=== PATIENT | female | born 1945 | race Caucasian/White ===

== ENCOUNTER 2021-06-10 14:53 | Outpatient (CLI) | payer MEDICARE, SELFPAY ==
[2021-06-10 19:40] LABS: Hemoglobin 13.5 g/dL (12.0-15.0); Mean Corpuscular HGB Conc 32.1 g/dl (32-36); Mean Corpuscular Hemoglobin 31.1 pg (26-34); Mean Corpuscular Volume 96.8 fl (80-100); Mean Platelet Volume 9.9 fl (7.4-10.4); Platelet Count Result 285 k/mm3 (150-375); Red Blood Count 4.34 M/mm3 (4.2-5.4); Red Cell Distribution Width 12.1 % (11.5-14.5); White Blood Count 8.2 K/mm3 (4.5-10.0)
[2021-06-10 19:48] LABS: Alanine Aminotransferase 19 U/L (4-35); Albumin Level 4.7 g/dL (3.5-5.1); Alkaline Phosphatase 185 U/L (38-126); Anion Gap 8 mmol/L (8-16); Aspartate Amino Transferase 30 U/L (14-36); Bilirubin,Total 0.7 mg/dL (0.2-1.3); Blood Urea Nitrogen 21 mg/dL (7-17); Calcium 10.3 mg/dL (8.4-10.2); Carbon Dioxide 29 mmol/L (22-30); Chloride 103 mmol/L (98-107); Cholesterol 225 mg/dL (0-200); Estimated Glomerular Filt Rate > 60; Glucose 110 mg/dL (65-110); HDL Direct 65 mg/dL; Potassium 4.1 mmol/L (3.4-5.0); Sodium 140 mmol/L (137-145); Triglycerides 139 mg/dL (<150)
[2021-06-10 19:58] LABS: LDL Cholesterol Direct 126 mg/dL
[2021-06-10 20:18] LABS: Thyroid Stimulating Hormone Reflex 0.931 uIU/mL (0.465-4.68)
== END 2021-06-10 14:54 | disposition home or self-care (01) ==
PROVIDERS: PCP Family Medicine; Visit Provider Family Medicine
DX: E78.5 Hyperlipidemia, unspecified (principal); J44.9 Chronic obstructive pulmonary disease, unspecified; G47.00 Insomnia, unspecified; G43.909 Migraine, unspecified, not intractable, without status migrainosus
CPT/HCPCS: 36415; 80053; 80061; 84443; 85027

== ENCOUNTER 2021-09-09 14:57 | Outpatient (CLI) | payer MEDICARE, SELFPAY ==
[2021-09-09 19:23] LABS: Alanine Aminotransferase 23 U/L (4-35); Albumin Level 4.6 g/dL (3.5-5.1); Alkaline Phosphatase 179 U/L (38-126); Aspartate Amino Transferase 34 U/L (14-36); Bilirubin,Total 0.7 mg/dL (0.2-1.3)
[2021-09-12 03:25] LABS: Ionized Calcium 5.2 mg/dL (4.8-5.6)
== END 2021-09-09 14:58 | disposition home or self-care (01) ==
PROVIDERS: PCP Family Medicine; Visit Provider Family Medicine
DX: R74.8 Abnormal levels of other serum enzymes (principal); E83.52 Hypercalcemia
CPT/HCPCS: 36415; 80076; 82330

== ENCOUNTER 2021-10-15 11:55 | Outpatient (CLI) | payer MEDICARE, SELFPAY ==
[2021-10-15 20:12] LABS: Alkaline Phosphatase 174 U/L (38-126)
[2021-10-20 20:12] LABS: Parathyroid Hormone Related Pr 10 pg/mL (11-20)
[2021-10-21 05:37] LABS: Alkaline Phosphatase 163 U/L (37-153); Macrohepatic Isoenzymes 0 % (<=0)
== END 2021-10-15 11:56 | disposition home or self-care (01) ==
PROVIDERS: PCP Family Medicine; Visit Provider Family Medicine
DX: R74.8 Abnormal levels of other serum enzymes (principal); E83.52 Hypercalcemia
CPT/HCPCS: 36415; 83519; 84075; 84080

== ENCOUNTER 2021-11-10 11:28 | Emergency (ER) | payer MEDICARE, SELFPAY ==
[2021-11-10 11:35] VITALS: BP 127/61; PULSE 98; RESP 20; TEMP 36.1; O2SAT 100
--- NOTE | 2021-11-10 11:40 | ED.FEMALEGU ---
HPI - Female Genitourinary General Chief complaint: Urogenital-Female Stated complaint: Urinary Problem/Abdominal Pain Time Seen by Provider: 11/10/21 11:40 Source: patient Mode of arrival: ambulatory Limitations: no limitations History of Present Illness HPI Narrative: Ms. Estevez is a 76-year-old female patient presenting to the clinic today with complaints of possible urinary tract infection. She reports she is having urinary frequency, urgency and blood in her urine that began yesterday. She reports that she was having some right lower quadrant/pelvic pain this morning however that has resolved. History of a full hysterectomy. Related Data Home Medications Medication Instructions Recorded Confirmed fluoxetine 40 mg capsule 40 mg PO DAILY 06/10/21 11/10/21 Allergies Allergy/AdvReac Type Severity Reaction Status Date / Time tetracycline Allergy bright red Verified 11/10/21 11:43 and she gets really warm Review of Systems Review of Systems: Pertinent positives per HPI. Patient denies any fever, chills, rash, headache, visual changes, dizziness, cough, runny nose, sore throat, shortness of breath, chest pain, palpitations, nausea, vomiting, diarrhea, constipation. PMFSH Social History Social History Smoking status: Former smoker Comments At the time of my signature, I reviewed and agree with the nursing past medical, surgical, social, and family history. There is no relevant family history pertinent to the patient complaint. Exam Narrative: General: Well-developed, well nourished, in no apparent distress. Head: Normocephalic, atraumatic. Cardio: Regular rate and rhythm, s1 and s2 normal, no murmur appreciated. Resp: Clear to auscultation bilaterally, no rhonchi, rales, wheezing or rubs. Abdomen: Soft, pliable, bowel sounds present in all quadrants, non-tender to palpation, no organomegly, + CVAT tenderness bilaterally. Course Course Emergency Course: Portions of this record may have been created with voice recognition software. Level of Care: Express Care Visit Vital Signs Vital signs: Vital signs reviewed MDM - Female Genitourinary MDM Narrative Medical decision making narrative: At the time of visit patient is resting comfortably on the exam table. UA shows positive for blood, protein, ketone, and leukocyte. I suspect the patient has acute cystitis possibly early pyelonephritis. I will treat with a course of Bactrim. Supportive measures were discussed with the patient she voiced understanding of discharge instructions and agrees with treatment plan Differential Diagnosis Differential diagnosis: Likely urinary tract infection and cystitis Discharge Plan Discharge Clinical Impression: Urinary tract infection Qualifiers: Urinary tract infection type: acute cystitis Hematuria presence: with hematuria Qualified Code(s): N30.01 - Acute cystitis with hematuria Patient Disposition: Home, Self-Care Condition: Stable Instructions: Antibiotic Form, Urinary Tract Infection in Older Adults (ED) Additional Instructions: Take Bactrim as prescribed Increase fluids and stay well hydrated Wipe front to back. May use wet wipes. Avoid tub baths If sexually active- pee before and after intercourse. Wear cotton panties Avoid tight clothing up against the genitals Follow up with your PCP in 1 week if symptoms persist. Prescriptions: New sulfamethoxazole-trimethoprim [Bactrim DS] 800-160 mg tablet 1 tablet PO Q12H 7 Days Qty: 14 0RF No Action fluoxetine 40 mg capsule 40 mg PO DAILY tiotropium-olodaterol 2.5-2.5 mcg/actuation mist 2 puff inhalation DAILY Qty: 4 6RF rosuvastatin 20 mg tablet 20 mg PO DAILY Qty: 90 1RF sumatriptan succinate 50 mg tablet See Rx Instructions PO .COMPLEX Qty: 14 0RF Rx Instructions: take 1 tab at onset of headache; if no relief may repe
--- NOTE | 2021-11-10 13:03 | PC.NURSE ---
1303-- PT HAS NOT BEEN ABLE TO SUBMIT URINE SPECIMEN OF YET. SHE IS DRINKING HER 2ND BOTTLE OF WATER AND WILL ATTEMPT TO SUBMIT URINE FOR TESTING.
== END 2021-11-10 13:29 | disposition home or self-care (01) ==
PROVIDERS: Emergency Provider Nurse Practitioner Family; PCP Family Medicine
DX: N30.01 Acute cystitis with hematuria (principal); Z87.891 Personal history of nicotine dependence; E78.00 Pure hypercholesterolemia, unspecified; J44.9 Chronic obstructive pulmonary disease, unspecified; F32.A Depression, unspecified
CPT/HCPCS: 81003; 87077; 87086; 87088; 87186; 99213; G0463

== ENCOUNTER 2022-01-07 08:09 | Outpatient (CLI) | payer MEDICARE, SELFPAY ==
--- NOTE | ~2022-01-07 | XR_ITS ---
EXAMINATION: XR chest 2V DATE: 01/07/2022 13:08 INDICATION: Shortness of breath and cough TECHNIQUE: Frontal and lateral views of the chest are obtained COMPARISON: None available FINDINGS: There appears to be a nodule of the left lung base. No pleural effusion or pneumothorax. Th e cardiomediastinal silhouette is normal. There is moderate thoracic spondylosis. IMPRESSION: 1. Possible nodule of the left lung base. Further evaluation with CT of the chest is recommended. Reviewed, dictated and finalized at location B. IMPRESSION: 1. Possible nodule of the left lung base. Further evaluation with CT of the [address] st is recommended.
[2022-01-07 18:52] LABS: Hematocrit 40.9 % (37.0-47.0); Hemoglobin 12.6 g/dL (12.0-15.0); Mean Corpuscular HGB Conc 30.8 g/dl (32-36); Mean Corpuscular Hemoglobin 30.6 pg (26-34); Mean Corpuscular Volume 99.3 fl (80-100); Mean Platelet Volume 9.6 fl (7.4-10.4); Platelet Count Result 266 k/mm3 (150-375); Red Blood Count 4.12 M/mm3 (4.2-5.4); Red Cell Distribution Width 12.8 % (11.5-14.5); White Blood Count 8.4 K/mm3 (4.5-10.0)
[2022-01-07 19:11] LABS: Alanine Aminotransferase 25 U/L (6-35); Albumin Level 4.6 g/dL (3.5-5.1); Alkaline Phosphatase 130 U/L (38-126); Anion Gap 9 mmol/L (8-16); Aspartate Amino Transferase 69 U/L (14-36); Bilirubin,Total 0.8 mg/dL (0.2-1.3); Blood Urea Nitrogen 22 mg/dL (7-17); Calcium 9.9 mg/dL (8.4-10.2); Carbon Dioxide 29 mmol/L (22-30); Chloride 103 mmol/L (98-107); Estimated Glomerular Filt Rate 54; Glucose 86 mg/dL (65-110); Potassium 4.3 mmol/L (3.4-5.0); Sodium 141 mmol/L (137-145)
== END 2022-01-07 08:10 | disposition home or self-care (01) ==
PROVIDERS: PCP Family Medicine; Visit Provider Family Medicine
DX: E78.5 Hyperlipidemia, unspecified (principal); J44.9 Chronic obstructive pulmonary disease, unspecified; R74.8 Abnormal levels of other serum enzymes; R91.8 Other nonspecific abnormal finding of lung field
CPT/HCPCS: 36415; 71046; 80053; 85027

== ENCOUNTER 2022-01-15 12:37 | Outpatient (CLI) | payer MEDICARE, SELFPAY ==
[2022-01-15 13:00] VITALS: PULSE 78; O2SAT 100
[2022-01-15 13:05] VITALS: PULSE 96; O2SAT 95
[2022-01-15 13:15] VITALS: PULSE 82; O2SAT 98
--- NOTE | 2022-01-15 14:23 | HOMEO2EVAL ---
Evaluation was performed at [facility] Home Oxygen Evaluation RC: Home Oxygen (O2) Evaluation Start: 01/15/22 14:21 Freq: Status: Active Protocol: RPE Activity Type Activity Date Activity User E-sign Co-sign Detail Recorded Client Recorded Date Recorded By Document 01/15/22 13:00 [email or web address] [id number] 01/15/22 14:23 SOHA Document 01/15/22 13:05 SOHA [id number] 01/15/22 14:23 SOHA Document 01/15/22 13:15 SOHA [id number] 01/15/22 14:23 SOHA 01/15/22 01/15/22 01/15/22 13:00 13:05 13:15 Home O2 Evaluation Test Phase Resting Exercise Resting Oxygen Delivery Room Air Room Air Room Air Pulse Oximetry (90-100 %) 100 95 98 Pulse Rate (60-100 beats/min) 78 96 82 Ambulation Distance (feet) 350 Ambulation Distance (meters) 106.67 Treatment Charges O2 Evaluation - O2 Evaluation - Outpatient Outpatient
--- NOTE | 2022-01-15 14:25 | PCRCNOTE ---
FAXED EVAL TO OFFICE STAFF
--- NOTE | 2022-01-19 13:08 | WPDPFTINT ---
PFT Procedure Performed PFT Procedure Performed Spirometry with Pre/Post Bronchodilator Plethysmography (Lung Vol) Diffusing Cap (DLCO) Flow Vol Loop PFT Interpretation Lung volumes were measured with the body plethysmography method. The elevated FRC and RV are indicative of air trapping. The elevated TLC could represent lung hyperinflation. Spirometry showed diminished expiratory flow rates and a diminished FEV1 to FVC ratio 48%, indicative of obstructive airway disease. Following administration of a bronchodilator, there was no significant increase in expiratory flow rates. Lung diffusing capacity is severely reduced at 36% predicted. The flow volume loop is consistent with obstructive airway disease. Impression: Severe obstructive airway disease with evidence of air trapping and lung hyperinflation with no response to bronchodilators on this testing. Severely reduced lung diffusion capacity.
== END 2022-01-15 12:38 | disposition home or self-care (01) ==
PROVIDERS: PCP Family Medicine; Visit Provider Internal Medicine Pulmonary Disease
DX: R06.00 Dyspnea, unspecified (principal); J44.9 Chronic obstructive pulmonary disease, unspecified; R94.2 Abnormal results of pulmonary function studies
CPT/HCPCS: 94060; 94618; 94726; 94729

== ENCOUNTER 2022-02-16 11:39 | Outpatient (CLI) | payer MEDICARE, SELFPAY ==
[2022-02-16 18:50] LABS: Alanine Aminotransferase 24 U/L (6-35); Albumin Level 4.5 g/dL (3.5-5.1); Alkaline Phosphatase 136 U/L (38-126); Aspartate Amino Transferase 72 U/L (14-36)
[2022-02-16 19:31] LABS: Hepatitis B Surface Antigen Negative (Negative)
[2022-02-16 19:33] LABS: HAV RESULT Negative (Negative); Hepatitis B Core IgM Result Negative (Negative)
[2022-02-16 19:43] LABS: Hepatitis C Virus Antibody Negative (Negative)
== END 2022-02-16 11:40 | disposition home or self-care (01) ==
PROVIDERS: PCP Family Medicine; Visit Provider Family Medicine
DX: R74.8 Abnormal levels of other serum enzymes (principal); R91.1 Solitary pulmonary nodule; E83.52 Hypercalcemia; G47.30 Sleep apnea, unspecified; J44.9 Chronic obstructive pulmonary disease, unspecified; R74.01 Elevation of levels of liver transaminase levels
CPT/HCPCS: 36415; 80074; 80076

== ENCOUNTER 2022-06-24 11:57 | Outpatient (CLI) | payer MEDICARE, SELFPAY ==
--- NOTE | ~2022-06-24 | XR_ITS ---
Clinical Indication: COPD, shortness of breath PA and lateral views of the chest: Comparison: 01/07/2022 Findings: The lungs are clear, without evidence of focal consolidation or pleural effusion. Cardiome diastinal silhouette is within normal limits. Bones and soft tissues are unremarkable. Impression: Normal chest. Reviewed, dictated and finalized at location . R TECHNICIAN Impression: Normal chest.
[2022-06-24 19:03] LABS: Alanine Aminotransferase 19 U/L (6-35); Albumin Level 4.5 g/dL (3.5-5.1); Alkaline Phosphatase 117 U/L (38-126); Anion Gap 6 mmol/L (8-16); Aspartate Amino Transferase 45 U/L (14-36); Bilirubin,Total 0.9 mg/dL (0.2-1.3); Blood Urea Nitrogen 25 mg/dL (7-17); Calcium 9.5 mg/dL (8.4-10.2); Carbon Dioxide 28 mmol/L (22-30); Chloride 103 mmol/L (98-107); Cholesterol 236 mg/dL (0-200); Estimated Glomerular Filt Rate > 60; Glucose 102 mg/dL (65-110); HDL Direct 45 mg/dL; Potassium 3.8 mmol/L (3.4-5.0); Sodium 137 mmol/L (137-145); Triglycerides 133 mg/dL (<150)
[2022-06-24 19:14] LABS: LDL Cholesterol Direct 130 mg/dL
[2022-06-24 20:07] LABS: Basophils Absolute Auto 0.1 K/mm3 (0.0-0.1); Basophils Percent Auto 0.5 % (0.2-1.2); Eosinophils Absolute Auto 0.2 K/mm3 (0-0.3); Eosinophils Percent Auto 2.2 % (0-4.4); Hematocrit 37.9 % (37.0-47.0); Hemoglobin 12.1 g/dL (12.0-15.0); Immature Granulocyte Absolute 0.03 K/mm3 (0.00-0.031); Immature Granulocyte Percent A 0.3 % (0-0.5); Lymphocytes Absolute Auto 2.19 K/mm3 (0.9-3.2); Lymphocytes Percent Auto 22.6 % (18.3-44.2); Mean Corpuscular HGB Conc 31.9 g/dl (32-36); Mean Corpuscular Hemoglobin 30.4 pg (26-34); Mean Corpuscular Volume 95.2 fl (80-100); Mean Platelet Volume 10.1 fl (7.4-10.4); Monocytes Absolute Auto 0.6 K/mm3 (0.1-0.6); Monocytes Percent Auto 6.5 % (2.6-8.5); Neutrophils Absolute Auto 6.6 K/mm3 (1.3-6.7); Neutrophils Percent Auto 67.9 % (45.5-73.1); Platelet Count Result 296 k/mm3 (150-375); Red Blood Count 3.98 M/mm3 (4.2-5.4); Red Cell Distribution Width 12.6 % (11.5-14.5); White Blood Count 9.7 K/mm3 (4.5-10.0)
== END 2022-06-24 11:58 | disposition home or self-care (01) ==
PROVIDERS: PCP Family Medicine; Visit Provider Family Medicine
DX: J44.9 Chronic obstructive pulmonary disease, unspecified (principal); E78.5 Hyperlipidemia, unspecified; G43.909 Migraine, unspecified, not intractable, without status migrainosus; G47.00 Insomnia, unspecified; E83.52 Hypercalcemia; R74.8 Abnormal levels of other serum enzymes; R91.1 Solitary pulmonary nodule
CPT/HCPCS: 36415; 71046; 80053; 80061; 85025

== ENCOUNTER 2022-07-01 11:02 | Outpatient (CLI) | payer MEDICARE, SELFPAY ==
--- NOTE | ~2022-07-01 | XR_ITS ---
EXAMINATION: XR sacrum coccyx min 2V INDICATION: Pain after fall, initial encounter TECHNIQUE: Three views of the sacrum and coccyx are obtained. COMPARISON: None available FINDINGS: There appears to be subtle irregularity of the lower sacrum/coccyx, consistent with fractur e. There is moderate lumbar spondylosis. Calcified atherosclerosis is noted. IMPRESSION: 1. Findings suggestive of nondisplaced sacral/coccyx fracture. Consider CT for further evaluation. Reviewed, dictated and finalized at location A. [employer]
== END 2022-07-01 11:03 | disposition home or self-care (01) ==
LOC: ANHBWCIMG 11:03
PROVIDERS: PCP Family Medicine; Visit Provider Family Medicine
DX: J44.9 Chronic obstructive pulmonary disease, unspecified (principal); M53.3 Sacrococcygeal disorders, not elsewhere classified
CPT/HCPCS: 72220

== ENCOUNTER 2022-07-26 11:02 | Outpatient (CLI) | payer MEDICARE, SELFPAY ==
[2022-07-26 11:00] VITALS: PULSE 78; O2SAT 98
[2022-07-26 11:05] VITALS: PULSE 75; O2SAT 85
[2022-07-26 11:10] VITALS: PULSE 73; O2SAT 87
[2022-07-26 11:15] VITALS: PULSE 85; O2SAT 87
[2022-07-26 11:20] VITALS: PULSE 85; O2SAT 92
[2022-07-26 11:45] VITALS: PULSE 80; O2SAT 97
--- NOTE | 2022-07-26 11:50 | HOMEO2EVAL ---
Evaluation was performed at [facility] Home Oxygen Evaluation RC: Home Oxygen (O2) Evaluation Start: 07/26/22 11:46 Freq: Status: Active Protocol: RPE Activity Type Activity Date Activity User E-sign Co-sign Detail Recorded Client Recorded Date Recorded By Document 07/26/22 11:00 [email or web address] [email or web address] 07/26/22 11:50 PKH Document 07/26/22 11:05 [email or web address] [email or web address] 07/26/22 11:50 PKH Document 07/26/22 11:10 [email or web address] [email or web address] 07/26/22 11:50 PKH Document 07/26/22 11:15 [email or web address] [email or web address] 07/26/22 11:50 PKH Document 07/26/22 11:20 [email or web address] [email or web address] 07/26/22 11:50 PKH Document 07/26/22 11:45 [email or web address] [email or web address] 07/26/22 11:50 PKH 07/26/22 07/26/22 07/26/22 11:00 11:05 11:10 Home O2 Evaluation [Oxygen] -Test Phase Resting Exercise Exercise -Oxygen Delivery Room Air Room Air Nasal Cannula -Oxygen Flow Rate (L/min) 1 [Pulse Oximetry] -Pulse Oximetry (90-100 %) 98 85 L 87 L [Pulse Rate] -Pulse Rate (60-100 beats/min) 78 75 73 [Exercise] -Ambulation Distance (feet) -Ambulation Distance (meters) [Comments] -Home Oxygen Evaluation Comments [Charges] -Treatment Charges O2 Evaluation - Outpatient 07/26/22 07/26/22 07/26/22 11:15 11:20 11:45 Home O2 Evaluation [Oxygen] -Test Phase Exercise Resting Resting -Oxygen Delivery Nasal Cannula Nasal Cannula Room Air -Oxygen Flow Rate (L/min) 2 3 [Pulse Oximetry] -Pulse Oximetry (90-100 %) 87 L 92 97 [Pulse Rate] -Pulse Rate (60-100 beats/min) 85 85 80 [Exercise] -Ambulation Distance (feet) 300 -Ambulation Distance (meters) 91.43 [Comments] -Home Oxygen Evaluation Comments Patient requires 3lpm with activity [Charges] -Treatment Charges
--- NOTE | 2022-07-26 11:53 | PCRCNOTE ---
Home O2 eval complete.Patient requires Room Air with rest and 3lpm with activity.doctor notified.
== END 2022-07-26 11:03 | disposition home or self-care (01) ==
LOC: ANHPFT 11:03
PROVIDERS: PCP Family Medicine; Visit Provider Physician Assistant
DX: J44.9 Chronic obstructive pulmonary disease, unspecified (principal); R06.09 Other forms of dyspnea
CPT/HCPCS: 94618

== ENCOUNTER 2022-09-09 17:32 | Emergency (ER) | payer MEDICARE, SELFPAY ==
--- NOTE | ~2022-09-09 | XR_ITS ---
EXAMINATION: [id number] DATE: 09/09/2022 18:18 INDICATION: Left chest injury. TECHNIQUE: A frontal view of the chest and 2 views on 3 views of the left ribs were obtained. COMPARISON: Chest 2 views 06/24/2022 FINDINGS: The chest demonstrates clear lungs without pneumonia, pleural effusion, or pneumothorax. Th e heart size is normal. There are old healed fractures of left fourth, fifth, and seventh ribs. IMPRESSION: 1. No acute rib fracture. Reviewed, dictated and finalized at location E. IMPRESSION: 1. No acute rib fracture.
[2022-09-09 17:42] VITALS: BP 96/44; PULSE 90; RESP 20; TEMP 36.8; O2SAT 99
--- NOTE | 2022-09-09 18:09 | ED.FALL ---
HPI - Fall General Chief Complaint: Fall Stated Complaint: Lower back pain from fall Time Seen by Provider: 09/09/22 18:10 Source: patient, family, RN notes reviewed and old records reviewed Mode of arrival: ambulatory Limitations: no limitations History of Present Illness HPI Narrative: 77-year-old female who presents to [facility] with complaints left-sided rib pain posteriorly since experiencing fall on Tuesday at her home. Patient recently started on O2 at 3 L per nasal cannula has a history of COPD. She reports that she was standing up tying to move TV tray and she lost her balance and fell hitting her left posterior lateral chest on the coffee table. Patient denies hitting her head or any LOC.Patient has ecchymotic area to left posterior lateral chest below bra line, denies any changes in her breathing. MD complaint: fall Onset (ago): day(s) (2) Fall from: standing Related Data Allergies Allergy/AdvReac Type Severity Reaction Status Date / Time tetracycline Allergy bright red Verified 09/09/22 17:57 and she gets really warm Review of Systems Review of Systems: CONSTITUTIONAL: Denies fever, chills, or sweats. EYES: Denies visual changes, redness, or discharge. ENT: Denies rhinorrhea, congestion, sore throat, or otalgia. CARDIOVASCULAR: Denies chest pain, palpitations, or edema. RESPIRATORY: Denies cough or acute dyspnea patient is on home oxygen per nasal cannula at 3 liters GASTROINTESTINAL: Denies abdominal pain, nausea, vomiting, or diarrhea. GENITOURINARY: Denies dysuria or hematuria. SKIN: Denies rash or itching. MUSCULOSKELETAL: Denies back pain, joint pain, or myalgia.Positive for left posterior lateral chest soreness NEUROLOGIC: Denies headache, numbness, or weakness. PSYCHIATRIC: Positive for history of anxiety or depression. All systems reviewed & are unremarkable except as noted in HPI and below PMFSH Past Medical History Medical History COPD (chronic obstructive pulmonary disease) Elevated cholesterol Migraine Social History Social History Smoking status: Former smoker Comments At time of signature, agree with nursing past medical, surgical, social and family history. There is no relevant family history pertinent to the presenting complaint Exam Narrative: GENERAL: Chronic ill-appearing, well-nourished, and in no acute distress. HEAD: Normocephalic, atraumatic. EYES: PERRLA and EOMI. ENT: Nares clear, no rhinorrhea or epistaxis. Mucous membranes moist.TM's normal is [place], throat pink with no swelling NECK: Supple. no lymphadenopathy CHEST: Decreased to auscultation. No respiratory distress. on home oxygen at 3L per nasal cannula SAO2 99% HEART: Regular rate and rhythm. No murmur heard. Normal peripheral pulses. ABDOMEN: Soft, nontender, nondistended, normal active bowel sounds. EXTREMITIES: Normal range of motion. No edema. SKIN: Warm, dry, no rash.ecchymotic area left posterior lateral chest from fall NEURO: No focal deficits. Alert and oriented x3. Course Course Emergency Course: Patient is aware of diagnosis, understands and agrees to treatment plan.? Anticipatory guidance given.? Patient agrees to follow-up as directed and is aware of reasons to seek care at the emergency department. Portions of this record may have been created with voice recognition software Level of Care: Express Care Visit Vital Signs Vital signs: Vital Signs Temperature 36.8 C 09/09/22 17:42 Pulse Rate 90 09/09/22 17:42 Respiratory Rate 20 09/09/22 17:42 Blood Pressure 96/44 L 09/09/22 17:42 Pulse Oximetry 99 09/09/22 17:42 Oxygen Delivery Room Air 09/09/22 17:42 Temperature 36.8 C 09/09/22 17:42 Pulse Rate 90 09/09/22 17:42 Respiratory Rate 20 09/09/22 17:42 Blood Pressure 96/44 L 09/09/22 17:42 Pulse Oximetry 99 09/09/22 17:42 Oxygen Del[employer]
== END 2022-09-09 18:36 | disposition home or self-care (01) ==
PROVIDERS: Emergency Provider Registered Nurse; PCP Family Medicine
DX: S20.222A Contusion of left back wall of thorax, initial encounter (principal); W19.XXXA Unspecified fall, initial encounter; J44.9 Chronic obstructive pulmonary disease, unspecified; E78.00 Pure hypercholesterolemia, unspecified; Z87.891 Personal history of nicotine dependence
CPT/HCPCS: 71101; 99213; G0463

== ENCOUNTER 2023-04-13 16:14 | Emergency (ER) | payer MEDICARE, SELFPAY ==
[2023-04-13 16:21] VITALS: BP 124/67; PULSE 93; RESP 16; TEMP 36.3; O2SAT 97
--- NOTE | 2023-04-13 16:26 | ED.FEMALEGU ---
HPI - Female Genitourinary General Chief complaint: Urogenital-Female Stated complaint: Urinary Problem Time Seen by Provider: 04/13/23 16:27 Source: patient Mode of arrival: ambulatory Limitations: no limitations History of Present Illness HPI Narrative: Chelsea is a 77-year-old female patient presenting to clinic today with complaints of possible UTI. She reports she is having foul odor with urination and itching. Denies any vaginal discharge or irritation. Related Data Home Medications Medication Instructions Recorded Confirmed budesonide 160 mcg-glycopyr 9 2 inh inhalation DAILY 04/13/23 04/13/23 mcg-formot 4.8 mcg/actuation HFA inhaler (Breztri Aerosphere) rosuvastatin 20 mg tablet 20 mg PO DAILY 04/13/23 04/13/23 sumatriptan succinate 50 mg tablet 50 mg PO DAILY PRN Migraine 04/13/23 04/13/23 Headache Allergies Allergy/AdvReac Type Severity Reaction Status Date / Time tetracycline Allergy Unknown Unknown Verified 04/13/23 16:37 Review of Systems Review of Systems: Pertinent positives per HPI. Patient denies any fever, chills, rash, headache, visual changes, dizziness, cough, runny nose, sore throat, shortness of breath, chest pain, palpitations, nausea, vomiting, diarrhea, constipation, abdominal pain, or any urinary issues. PMFSH Comments At the time of my signature, I reviewed and agree with the nursing past medical, surgical, social, and family history. There is no relevant family history pertinent to the patient complaint. Exam Narrative: General: Well-developed, well nourished, in no apparent distress. Head: Normocephalic, atraumatic. Cardio: Regular rate and rhythm, s1 and s2 normal, no murmur appreciated. Resp: Clear to auscultation bilaterally, no rhonchi, rales, wheezing or rubs. Abdomen: Soft, pliable, bowel sounds present in all quadrants, non-tender to palpation, no organomegly, no CVAT tenderness. : Deferred Course Course Emergency Course: Portions of this record may have been created with voice recognition software. Level of Care: Express Care Visit Vital Signs Vital signs: Vital Signs Temperature 36.3 C L 04/13/23 16:21 Pulse Rate 93 04/13/23 16:21 Respiratory Rate 16 04/13/23 16:21 Blood Pressure 124/67 04/13/23 16:21 Pulse Oximetry 97 04/13/23 16:21 Oxygen Delivery Room Air 04/13/23 16:21 Temperature 36.3 C L 04/13/23 16:21 Pulse Rate 93 04/13/23 16:21 Respiratory Rate 16 04/13/23 16:21 Blood Pressure 124/67 04/13/23 16:21 Pulse Oximetry 97 04/13/23 16:21 Oxygen Delivery Room Air 04/13/23 16:21 Vital signs reviewed MDM - Female Genitourinary MDM Narrative Medical decision making narrative: At the time of visit patient is resting comfortably on the exam table. Urinalysis was performed and shows 2+ protein, trace of blood, bili, and trace ketones. Will send the urine for culture. Recommend patient follow-up with her PCP for kidney function tests. Supportive measures were discussed with the patient she voiced understanding the discharge instructions and agrees to treatment plan. Differential Diagnosis Differential diagnosis: Likely urinary tract infection, cystitis and other (Fungal infection) Discharge Plan Discharge Clinical Impression: Malodorous urine, Perineal itching, female Patient Disposition: Home, Self-Care Condition: Stable Instructions: Antibiotic Form Additional Instructions: UA is positive for 2+ protein, trace of blood, bilirubin, and ketones. We will send urine for culture Increase fluids and stay well hydrated Wipe front to back. May use wet wipes. Avoid tub baths If sexually active- pee before and after intercourse. Wear cotton panties Avoid tight clothing up against the genitals Follow up with your PCP next week-may need blood work -kidney function test Prescriptions: No Action rosuvastatin 20 mg tablet 20 mg PO DAILY sumatriptan succinate 50 mg t
== END 2023-04-13 16:40 | disposition home or self-care (01) ==
PROVIDERS: Emergency Provider Nurse Practitioner Family; PCP Family Medicine
DX: R82.998 Other abnormal findings in urine (principal); L29.3 Anogenital pruritus, unspecified; J44.9 Chronic obstructive pulmonary disease, unspecified
CPT/HCPCS: 81003; 87086; 87088; 99213; G0463

== ENCOUNTER 2023-06-22 12:37 | Outpatient (CLI) | payer MEDICARE, SELFPAY ==
--- NOTE | ~2023-06-22 | CT_ITS ---
EXAMINATION:CT diagnostic chest wo con DATE: 06/22/2023 12:51 INDICATION: Solitary pulmonary nodule. TECHNIQUE: Computed tomography (CT) of the chest was performed without intravenous contrast. Automate d exposure control and iterative reconstruction technique were employed. The dose-length product (DLP ) was 73.72 mGy-cm. COMPARISON: None. FINDINGS: There is mild emphysema. There is mild scarring at the lung apices. There is mild atelectas is bilaterally. There is a 3 mm nodule in left upper lobe, likely benign. No pleural effusion. There is calcified atherosclerosis of the aorta and many of the other arteries. The heart size is normal. T here are coronary artery calcifications. No pericardial effusion. There is moderate cervical spondylo sis. IMPRESSION: 1. Mild emphysema. Reviewed, dictated and finalized at location E. [employer]SILE CREWMAN IMPRESSION: 1. Mild emphysema.
== END 2023-06-22 12:38 | disposition home or self-care (01) ==
LOC: ANHIMG 12:41
PROVIDERS: PCP Nurse Practitioner Adult Health; Visit Provider Physician Assistant
DX: R91.1 Solitary pulmonary nodule (principal)
CPT/HCPCS: 71250

== ENCOUNTER 2023-06-25 02:37 | Emergency (ER) | payer MEDICARE, SELFPAY ==
[2023-06-25] VITALS (16 sets, daily range): BP systolic 139–192; BP diastolic 77–156; PULSE 54–77; RESP 18–20; TEMP 36.2; O2SAT 91–100
--- NOTE | 2023-06-25 02:56 | ECG_ITS ---
Measurements Intervals [place] Rate: 71 P: 84 FL: 178 QRS: 26 QRSD: 92 T: 81 QT: 376 QTc: 410 Interpretive Statements SINUS RHYTHM SEPTAL MYOCARDIAL INFARCTION , OF INDETERMINATE AGE [40+ ms Q WAVE IN V1/V2] NONSPECIFIC ST AND T-WAVE ABNORMALITY ABNORMAL ECG NO PREVIOUS ECG AVAILABLE FOR COMPARISON Electronically Signed On 06-25-2023 8:05:08 FACILITY ENGINEER by Clayton Stover M.D.
[2023-06-25 03:08] LABS: Basophils Absolute Auto 0.1 K/mm3 (0.0-0.1); Basophils Percent Auto 0.7 % (0.2-1.2); Eosinophils Absolute Auto 0.1 K/mm3 (0-0.3); Eosinophils Percent Auto 1.6 % (0-4.4); Hematocrit 41.2 % (37.0-47.0); Hemoglobin 13.4 g/dL (12.0-15.0); Immature Granulocyte Absolute 0.02 K/mm3 (0.00-0.031); Immature Granulocyte Percent A 0.2 % (0-0.5); Lymphocytes Absolute Auto 2.49 K/mm3 (0.9-3.2); Lymphocytes Percent Auto 31.1 % (18.3-44.2); Mean Corpuscular HGB Conc 32.5 g/dl (32-36); Mean Corpuscular Hemoglobin 31.1 pg (26-34); Mean Corpuscular Volume 95.6 fl (80-100); Mean Platelet Volume 9.4 fl (7.4-10.4); Monocytes Absolute Auto 0.5 K/mm3 (0.1-0.6); Monocytes Percent Auto 6.6 % (2.6-8.5); Neutrophils Absolute Auto 4.8 K/mm3 (1.3-6.7); Neutrophils Percent Auto 59.8 % (45.5-73.1); Platelet Count Result 253 k/mm3 (150-375); Red Blood Count 4.31 M/mm3 (4.2-5.4); Red Cell Distribution Width 12.3 % (11.5-14.5)
[2023-06-25 03:19] LABS: Prothrombin Time 13.2 Seconds (11.1-14.7)
[2023-06-25 03:20] LABS: Partial Thromboplastin Time 23.8 SECONDS (22.3-36.8)
[2023-06-25 03:27] LABS: Alanine Aminotransferase 18 U/L (6-35); Albumin Level 4.5 g/dL (3.5-5.1); Alkaline Phosphatase 128 U/L (38-126); Anion Gap 10 mmol/L (8-16); Aspartate Amino Transferase 35 U/L (14-36); Bilirubin,Total 1.6 mg/dL (0.2-1.3); Blood Urea Nitrogen 24 mg/dL (7-17); Calcium 10.1 mg/dL (8.4-10.2); Carbon Dioxide 25 mmol/L (22-30); Chloride 104 mmol/L (98-107); Estimated CRCL calculation 42 ml/min; Estimated Glomerular Filt Rate > 60; Glucose 90 mg/dL (65-110); Potassium 4.3 mmol/L (3.4-5.0); Sodium 139 mmol/L (137-145)
--- NOTE | 2023-06-25 05:39 | PC.NURSE ---
this rn asked pt to provide a urine sample. pt refused to provide urine sample and stated I don't have to go but thank you . This rn explained to pt the importance of providing a urine sample and pt stated, I am tired, let's try again later .
--- NOTE | 2023-06-25 06:07 | ED.GENADULT ---
HPI - General Adult General Chief complaint: Altered Mental Status <Christopher Catalan MD - Last Filed: 06/25/23 07:31> Stated complaint: confused <Christopher Catalan MD - Last Filed: 06/25/23 07:31> Time Seen by Provider: 06/25/23 02:54 <Christopher Catalan MD - Last Filed: 06/25/23 07:31> History of Present Illness HPI narrative: patient 77-year-old female who presents emergency department with chief complaint of being lost. Patient was found after she drove her vehicle over a curb at [facility] ED in the middle of the night patient apparently has history of dementia and lives with family the patient apparently decided to go for a drive this evening got lost and was found by police and fire PD attempted to contact patient's family but has been unsuccessful and the patient was brought to the emergency department <Christopher Catalan MD - Last Filed: 06/25/23 07:31> Related Data Home medications: Home Medications Medication Instructions Recorded Confirmed budesonide 160 mcg-glycopyr 9 2 inh inhalation DAILY 04/13/23 04/13/23 mcg-formot 4.8 mcg/actuation HFA inhaler (Breztri Clariturephere) rosuvastatin 20 mg tablet 20 mg PO DAILY 04/13/23 04/13/23 sumatriptan succinate 50 mg tablet 50 mg PO DAILY PRN Migraine 04/13/23 04/13/23 Headache <Christopher Catalan MD - Last Filed: 06/25/23 07:31> Allergies/adverse reactions: Allergies Allergy/AdvReac Type Severity Reaction Status Date / Time tetracycline Allergy bright red Verified 06/25/23 02:55 and she gets really warm <Christopher Catalan MD - Last Filed: 06/25/23 07:31> Review of Systems Review of Systems: A 10 system review of systems was completed on the patient and is negative except for what is stated in the HPI. Nursing and ancillary documentation was reviewed. <Christopher Catalan MD - Last Filed: 06/25/23 07:31> [facility] Past Medical History Medical History: Medical History COPD (chronic obstructive pulmonary disease) Elevated cholesterol Migraine <Christopher Catalan MD - Last Filed: 06/25/23 07:31> Social History Social History: Social History Smoking status: Former smoker <Christopher Catalan MD - Last Filed: 06/25/23 07:31> Exam Narrative: GENERAL: Well-appearing, well-nourished, and in no acute distress. HEAD: Normocephalic, atraumatic. EYES: PERRLA and EOMI. ENT: Nares clear, no rhinorrhea or epistaxis. Mucous membranes moist. NECK: Supple. CHEST: Clear to auscultation. No respiratory distress. HEART: Regular rate and rhythm. No murmur heard. Normal peripheral pulses. ABDOMEN: Soft, nontender, nondistended, normal active bowel sounds. EXTREMITIES: Normal range of motion. No edema. SKIN: Warm, dry, no rash. NEURO: No focal deficits. Alert and pleasantly confused. PSYCH: Normal mood and affect. <Christopher Catalan MD - Last Filed: 06/25/23 07:31> Course Reevaluation(s) Reevaluation #1: Patient looks great, smiling, not in any pain or distress, granddaughter at the bedside who agreed to hide the car keys, the house keys from the patient and if the family on not able to manage to take care of the patient care home would be the next step. Granddaughter agreed. <Peter Lawson MD - Last Filed: 06/25/23 10:13> Date: 06/25/23 <Peter Lawson MD - Last Filed: 06/25/23 10:13> Time: 10:13 <Peter Lawson MD - Last Filed: 06/25/23 10:13> Vital Signs Vital signs: Vital Signs Temperature 36.2 C L 06/25/23 02:37 Pulse Rate 74 06/25/23 02:37 Respiratory Rate 18 06/25/23 02:37 Blood Pressure 162/93 H 06/25/23 02:37 Pulse Oximetry 100 06/25/23 02:37 Oxygen Delivery Room Air 06/25/23 02:37 Temperature 36.2 C L 06/25/23 02:37 Pulse Rate 73 02/
--- NOTE | 2023-06-25 06:16 | PC.NURSE ---
THIS RN ATTEMPTED TO CALL PT FAMILY JORGE. THERE WAS NO ANSWER BY JORGE.
--- NOTE | 2023-06-25 07:21 | PC.NURSE ---
THIS RN CONTACTED [employer] ABOUT LOCATION/ INFORMATION ABOUT PT FAMILY [employer]OU[employer]. [employer] STATED THEY WERE UNSURE OF THE SITUATION BUT WOULD INVESTIGATE . FIRE WATCHMAN WAS ABLE TO GIVE THIS RN CORRECT CONTACT INFORMATION FOR PT CONTACTS. THIS RN ATTEMPTED TO CALL THE NUMBER PROVIDED BY POLICE MULTIPLE TIMES. THIS RN LEFT A MESSAGE TO CONTACT [facility].
--- NOTE | 2023-06-25 07:30 | PC.NURSE ---
Attempted to collect urine and pt was unable to urinate in hat. Pt is unsteady on her feet and A&Ox3.
--- NOTE | 2023-06-25 08:12 | PC.NURSE ---
Rebeca returned call and states she didnt know pt was in ER. stated she would attempt to call relative to pick pt up.
[2023-06-25 08:24] LABS: Appearance Urine Clear (Clear); Bacteria Urine None Seen /hpf; Bilirubin Urine Negative (Negative); Blood Urine Negative (Negative); Color Urine Dark Yellow (Yellow); Glucose Urine UA Negative (Negative); Ketones Urine 2+ mg/dL (Negative); Leukocyte Esterase Ur Negative LEU/UL (Negative); Need Manual Microscopic Reviewed; Nitrate Urine Negative (Negative); Non Pathogenic Casts 0-2; Protein Urine Trace mg/dL (Negative); RBC Urine 0-2 /hpf (0-2); Specific Grav Ur 1.027 (1.001-1.035); Squamous Epithelial Cell Urine None seen /hpf (Few); WBC Urine 0-5 /hpf; pH Urine 5.5 (5.0-9.0)
[2023-06-25 08:25] LABS: Add Urine Microscopic? YES
== END 2023-06-25 10:20 | disposition home or self-care (01) ==
PROVIDERS: Emergency Medicine; Emergency Provider Emergency Medicine; PCP Nurse Practitioner Adult Health
DX: F03.90 Unspecified dementia, unspecified severity, without behavioral disturbance, psychotic disturbance, mood disturbance, and anxiety (principal); J44.9 Chronic obstructive pulmonary disease, unspecified; E78.5 Hyperlipidemia, unspecified; Z87.891 Personal history of nicotine dependence
CPT/HCPCS: 36415; 80053; 81001; 85025; 85610; 85730; 93005; 99284

== ENCOUNTER 2024-03-30 12:12 | Outpatient (CLI) | payer MEDICARE, SELFPAY ==
[2024-03-30 13:05] VITALS: PULSE 75; O2SAT 95
[2024-03-30 13:10] VITALS: PULSE 91; O2SAT 93
[2024-03-30 13:20] VITALS: PULSE 76; O2SAT 95
--- NOTE | 2024-03-30 13:26 | HOMEO2EVAL ---
Evaluation was performed at [facility] Home Oxygen Evaluation RC: Home Oxygen (O2) Evaluation Start: 03/30/24 13:25 Freq: Status: Active Protocol: RPE Activity Type Activity Date Activity User E-sign Co-sign Detail Recorded Client Recorded Date Recorded By Document 03/30/24 13:05 SOHA [id number] 03/30/24 13:26 SOHA Document 03/30/24 13:10 SOHA [id number] 03/30/24 13:26 SOHA Document 03/30/24 13:20 SOHA [id number] 03/30/24 13:26 SOHA 03/30/24 03/30/24 03/30/24 13:05 13:10 13:20 Home O2 Evaluation [Oxygen] -Test Phase Resting Exercise Resting -Oxygen Delivery Room Air Room Air Room Air [Pulse Oximetry] -Pulse Oximetry (90-100 %) 95 93 95 [Pulse Rate] -Pulse Rate (60-100 beats/min) 75 91 76 [Evaluation] -Activity Tolerance Fair [Exercise] -Ambulation Distance (feet) 200 -Ambulation Distance (meters) 60.95 [Charges] -Evaluation Charges O2 Evaluation by Pulmonary
== END 2024-03-30 12:13 | disposition home or self-care (01) ==
LOC: ANHPFT 12:15
PROVIDERS: PCP Family Medicine; Visit Provider Physician Assistant
DX: J44.9 Chronic obstructive pulmonary disease, unspecified (principal)
CPT/HCPCS: 94618

== ENCOUNTER 2024-08-01 12:59 | Outpatient (CLI) | payer MEDICARE, SELFPAY ==
--- NOTE | ~2024-08-01 | CT_ITS ---
CT Scan of the Chest without Contrast: Clinical Indication: Pulmonary nodule Technique: Contiguous sections were acquired throughout the chest without intravenous contrast. Dose reduction technique was used on this scan by utilizing automated exposure control and iterative recon struction technique. The dose-length product (DLP) was 60.27 mGy-cm. COMPARISON: 06/22/2023 Findings: There is no evidence of any significant mediastinal, hilar or axillary lymphadenopathy. There are ath erosclerotic calcifications of the aorta and coronary arteries. There is no evidence of pleural or pericardial effusion. There is stable discoid atelectasis or scarring at the left upper lobe inferiorly. Stable 3 mm left u pper lobe pulmonary nodule. Images through the upper abdomen reveal no abnormalities. Impression: Stable 3 mm left upper lobe pulmonary nodule. Stable atelectasis or scarring left upper lobe. Reviewed, dictated and finalized at [facility]. Impression: Stable 3 mm left upper lobe pulmonary nodule. Stable atelectasis or scarring left upper lobe.
--- OUTSIDE RECORDS SUMMARY | 2024-08-01 14:25 | XMS_ITS | Clinical Summary ---
Author Organization [facility] Address [address] [place] [address] Phone Care Team Providers Care Senior Linux Systems Administrator Name Role Phone Wendy Teague Primary Care Provider Matt Benitez MD Unavailable [phone] Allergies Active Allergy Reactions Criticality Noted Date Comments Tetracycline Hives 09/10/2022 Medications albuterol 108 (90 Base) MCG/ACT Aerosol Solution take 2 Puffs by inhalation every 4 hours as needed for Shortness of Breath. 3 Active FLUoxetine (PROZAC) 40 MG Capsule Take 40 mg by mouth daily. 3 Active rosuvastatin (CRESTOR) 20 MG Tablet Take 20 mg by mouth daily. 3 Active SUMAtriptan (IMITREX) 50 MG Tablet Take 50 mg by mouth once as needed. Use as directed. May repeat dose in 2 hours if headache recurs. Active Budeson-Glycopy rrol-Formoterol (Breztri Aerosphere) 160-9-4.8 MCG/ACT Aerosol take by inhalation. Active donepezil (ARICEPT) 10 MG Tablet Take 1 Tablet by mouth nightly. 90 Tablet 3 4 Active primidone (MYSOLINE) 250 MG TabletIndicatio ns:Tremors of nervous system TAKE 1 TABLET BY MOUTH EVERY DAY AT NIGHT 30 Tablet 1 5 Active primidone (MYSOLINE) 50 MG TabletIndicatio ns:Tremors of nervous system Take 2 Tablets by mouth every morning. 60 Tablet 2 5 Active Active Problems Problem Noted Date Diagnosed Date COPD exacerbation 06/28/2023 Acute metabolic encephalopathy 09/11/2022 Generalized weakness 09/11/2022 Urinary tract infection 09/11/2022 COPD (chronic obstructive pulmonary disease) Hypertension 09/11/2022 Hyperlipidemia 09/11/2022 Depression 09/11/2022 Resolved Problems Problem Noted Date Diagnosed Date Resolved Date Left hip pain 09/11/2022 09/13/2022 Fall 09/11/2022 09/13/2022 Constipation 09/11/2022 09/13/2022 Encounters Date Type Department Care Team Description 07/26/2024 Telephone [facility] [address] [place] [address] Matt Benitez MD 06/10/2024 Refill [facility] [address] [place] [address] Matt Benitez MD Medication Refill from Last 3 Months Immunizations Immunization Administration Dates Next Due Covid-19 Vaccine, Vector-nr, Rs-ad26, Pf, 0.5 Ml (BALBIR/J&J) 05/19/2021 Covid-19, Mrna, Lnp-s, Pf, 30 Mcg/0.3 Ml Dose (Alee chao) 01/03/2022 Influenza, High-dose, Quadrivalent 08/10/2022, Social History Tobacco Use Types Packs/Day Years Used Date Smoking Tobacco: Former Cigarettes Q uit: 05/16/1999 Smokeless Tobacco: Never Tobacco Cessation:Counseling Given: Not Answered Alcohol Use Standard Drinks/Week Comments Never 0 (1 standard drink = 0.6 oz pur e alcohol) [facility] Utilities Answer Date Recorded In the past 12 months has [employer], gas, oil, or water company threatened to shut off services in your home? Patient declined 06/27/2023 Social Connection and Isolation Panel [NHANES] A nswer Date Recorded In a typical week, how many times do you talk on the phone with family, friends, or neighbors? Patient declined 06/27/2023 How often do you get togethe r with friends or relatives? Patient declined 06/27/2023 How often do you attend baptism or islam serv ices? Patient declined 06/27/2023 Do you belong to any clubs o r organizations such as baptism groups, unions, fraternal or athletic groups, or school groups? Patient declined 06/27/2023 How often do you attend meet ings of the clubs or organizations you belong to? Patient declined 06/27/2023 Are you , , di vorced, , never , or living with a partner? Patient declined 06/27/2023 AUDIT-C Answer Date Recorded Q1: How often do you have a drink containing alcohol? Never 06/27/2023 Q2: How many drinks containi ng alcohol do you have on a typical day when you are drinking? Patient does not drink Q3: How often do you have si x or more drinks on one occasion? Never 06/27/2023 Overall Financial Resource Strain (CARDIA) Answe r Date Recorded How hard is it for you to pa y for the very basics like food, housing, medical care, and heating? Patient declined 06/27/2023 [facility] Occupat ional Health - Occupational Stress Questionnaire Answer Date Recorded Do you feel stress - tense, restless, nervous, or anxious, or unable to sleep at night because your mind is troubled all the time - these days? Patient declined 06/27/2023 Exercise Vital Sign Answer Date Recorde d On average, how many days pe r week do you engage in moderate to strenuous exercise (like a brisk walk)? Patient declined 06/27/2023 On average, how many minutes do you engage in exercise at this level? Patient unable to answer 06/27/2023 Hunger Vital Sign Answer Date Recorded Within the past 12 months, y ou worried that your food would run out before you got the money to buy more. Patient declined Within the past 12 months, t he food you bought just didn't last and you didn't have money to get more. Patient declined 04/2024 PRAPARE - Transportation Answer Date Re corded In the past 12 months, has l ack of transportation kept you from medical appointments or from getting medications? Patient declined 06/27/2023 In the past 12 months, has l ack of transportation kept you from meetings, work, or from getting things needed for daily living? Patient declined 06/27/2023 Housing Stability Vital Sign Answer Dylan e Recorded In the last 12 months, was t here a time when you were not able to pay the mortgage or rent on time? Patient declined 06/27/19 24 In the last 12 months, how many places have you lived? 1 06/27/2023 In the last 12 months, was t here a time when you did not have a steady place to sleep or slept in a senior care (including now)? Patient declined 06/27/2023 Sexually Active Control Partners Comments Not Currently Comments No Sex and Gender Information Value Date Recorded Sex Assigned at Not on file Legal Sex Female 7:01 PM CDT Gender Identity Not on file Sexual Orientation Not on file Last Filed Vital Signs Vital Sign Reading Time Taken Comments Blood Pressure 120/70 03/02/2024 9:55 AM CDT Pulse 84 03/02/2024 9:55 AM CDT Temperature 36.4 C (97.6 F) 03/02/2024 9:55 AM CDT Respiratory Rate 17 03/02/2024 9:55 AM CDT Oxygen Saturation 95% 12/09/2023 10: 08 AM CDT Inhaled Oxygen Concentration - - Weight 61.2 kg (134 lb 14.4 oz) 03/02/2024 9:55 AM CDT Height 162.6 cm (5' 4 ) 03/02/2024 9:55 AM CDT Body Mass Index 23.16 03/02/2024 9:55 AM CDT Plan of Treatment Upcoming Encounters Date Type Department Care Team (Late st Contact Info) Description 08/27/2024 2:00 PM CDT Office Visit [facility] - Neurology [facility] [address] [place] [address] Matt Benitez MD [address] [facility] [address] Health Maintenance Due Date Last Done Comments Hepatitis C Virus (HCV) Screening 1945 TdaP Immunization 1945 Pneumococcal Immunization (5 0+ years) (1 of 2 - PCV) 1965 Zoster Immunization (1 of 2) 1996 DEXA Bone Density 02/25/2017 02/25/2015, 04/24/2012 Respiratory Syncytial Virus (RSV) Immunization (Adult) (1 - 1-dose 75+ series) 2021 Influenza Immunization (#1) 01/15/2024/12/2022, 05/03/2021 SARS-COV-2 Immunization ( season) 2024 11/05/2022, 01/03/2022, 05/19/2021 Hepatitis B Immunization Aged Out No longer eligible based on patient's age to complete this topic Meningococcal Immunization (ACWY) Aged Out No longer eligible b ased on patient's age to complete this topic Rotavirus Immunization Aged Out No lo nger eligible based on patient's age to complete this topic Insurance MEDICARE C AETNA [place]ICAID [place] Advance Directives Documents on File Type Date Recorded Patient Marketing Project Manager Expl anation Power of [place] for Health Care 09/10/2022 8:56 PM Healthcare POA * Full Code (Latest Code Status on File) Date Activated Date Inactivated Comments 06/27/2023 9:29 PM 07/07/2023 3:03 PM CPR-Full Roddy atment: FULL ARREST: Attempt Resuscitation/CPR wit intubation and mechanical ventilation. PRE-ARREST: Use entire range of life support measures to stabilize the patient. * Full Code Date Activated Date Inactivated Comments 09/11/2022 4:27 AM 09/13/2022 6:08 PM CPR-Full Rachell tment: FULL ARREST: Attempt Resuscitation/CPR wit intubation and mechanical ventilation. PRE-ARREST: Use entire range of life support measures to stabilize the patient. Care Teams Senior Linux Systems Administrator Relationship Specialty Start Date End Date Wendy Teague PAC [address] [facility] [address] [place] [address] PCP - General Physician Living Advisor 02/23/23 Matt Benitez MD [address] [place] [address] Consulting Physician Neurology 12/09/23
--- OUTSIDE RECORDS SUMMARY | 2024-08-01 14:25 | XMS_ITS | Clinical Summary ---
Author Organization [facility] Address [address] [place] [address] Care Team Providers Care Report Checker Name Role Phone Justin Simpson MD Primary Care Provider [phone] Allergies Active Allergy Reactions Criticality Noted Date Comments Tetracycline Hives,Itching Medium 04/24/2012 Tetracyclines Redness Low 11/09/2021 Medications cyclobenzaprine (FLEXERIL) 10 mg tablet Take 1 tablet (10 mg total) by mouth 3 (three) times a day as needed for muscle spasms for muscle spasms 3 Active FLUoxetine (PROzac) 40 mg capsule Take 1 capsule (40 mg total) by mouth daily 3 Active Stiolto Respimat 2.5-2.5 mcg/actuation inhaler Inhale 1 puff daily 2 Active amLODIPine (NORVASC) 5 mg tablet Take 1 tablet (5 mg total) by mouth daily 30 tablet 11 3 Active albuterol HFA (PROVENTIL HFA,VENTOLIN HFA,PROAIR HFA) 90 mcg/actuation inhalerIndicatio ns:Chronic Obstructive Pulmonary Disease Inhale 2 puffs every 4 (four) hours as needed for wheezing Active senna-docusate (PERICOLACE) 8.6-50 mgIndications:co nstipation Take 1 tablet by mouth 2 (two) times a day Active atorvastatin (LIPITOR) 20 mg tabletIndication s:hyperlipidemia Take 1 tablet (20 mg total) by mouth nightly Active QUEtiapine (SEROquel) 100 mg tablet Take 1 tablet (100 mg total) by mouth nightly 30 tablet 3 Active QUEtiapine (SEROquel) 25 mg tablet Take 1 tablet (25 mg total) by mouth daily 30 tablet 3 Active Active Problems Problem Noted Date Diagnosed Date Frequent falls 09/15/2022 COPD exacerbation 06/26/2022 Fall 06/26/2022 Hypoxemia 06/26/2022 Hypertension Confusion Bilateral hip pain Encephalopathy, unspecified Medical History Medical History Date Comments COPD (chronic obstructive pulmonary disease) (HC C) CHF (congestive heart failure) (HCC) Hypertension Anxiety Social History Tobacco Use Types Packs/Day Years Used Date Smoking Tobacco: Never Smokeless Tobacco: Never Tobacco Cessation:Counseling Given: Not Answered Social Connection and Isolat ion Panel [NHANES] Answer Date Recorded In a typical week, how many times do you talk on the phone with family, friends, or neighbors? More than three times a week 09/15/2022 How often do you get togethe r with friends or relatives? Once a week 09/15/2022 How often do you attend chur ch or alevism services? Never 09/15/2022 Do you belong to any clubs o r organizations such as baptism groups, unions, fraternal or athletic groups, or school groups? No 09/15/2022 How often do you attend meet ings of the clubs or organizations you belong to? Never 09/15/2022 Are you , , di vorced, , never , or living with a partner? Never 09/15/2022 Overall Financial Resource Strain (CARDIA) Answe r Date Recorded How hard is it for you to pa y for the very basics like food, housing, medical care, and heating? Not hard at all 09/15/2022 Hunger Vital Sign Answer Date Recorded Within the past 12 months, y ou worried that your food would run out before you got the money to buy more. Never true 09/16/19 23 Within the past 12 months, t he food you bought just didn't last and you didn't have money to get more. Never true 09/15/2022 PRAPARE - Transportation Answer Date Re corded In the past 12 months, has l ack of transportation kept you from medical appointments or from getting medications? No 07/2022 In the past 12 months, has l ack of transportation kept you from meetings, work, or from getting things needed for daily living? No 09/15/2022 Housing Stability Vital Sign Answer Dylan e Recorded In the last 12 months, was t here a time when you were not able to pay the mortgage or rent on time? No 09/15/2022 In the last 12 months, how many places have you lived? 1 09/15/2022 In the last 12 months, was t here a time when you did not have a steady place to sleep or slept in a residential (including now)? No 09/15/2022 Personal Safety Answer Date Recorded Getting School Help Needed Not on file 09/16 Education Answer Date Recorded What is the highest level of school you have completed or the highest degree you have received? High school graduate 09/15/2022 Comments Unknown Sex and Gender Information Value Date Recorded Sex Assigned at Not on file Legal Sex Female 12:33 PM CDT Gender Identity Not on file Sexual Orientation Not on file Obstetrics History Last Filed Vital Signs Vital Sign Reading Time Taken Comments Blood Pressure 128/57 09/21/2022 12:05 PM CDT Pulse 85 09/21/2022 12:05 PM CDT Temperature 36.2 C (97.2 F) 09/21/2022 12:05 PM CDT Respiratory Rate 17 09/21/2022 12:05 PM CDT Oxygen Saturation 95% 09/21/2022 12:05 PM CDT Inhaled Oxygen Concentration - - Weight 64.5 kg (142 lb 3.2 oz) 09/15/2022 9:20 A M CDT Height 170.2 cm (5' 7 ) 09/15/2022 9:20 AM CDT Body Mass Index 22.27 09/15/2022 9:20 AM CDT Plan of Treatment Health Maintenance Due Date Last Done Comments Depression Screening 1945 Fall Risk Assessment 1945 Hepatitis C Screening 1945 Osteoporosis Screening-Bone Density Scan 1945 DTaP/Tdap/Td Vaccine (1 - Tdap) 1957 Hepatitis B Screening 1964 Zoster Vaccine (1 of 2) 1996 Well Visit 65+ 07/22/2011 Covid-19 Vaccine (2023-2 5 season) 2024 01/03/2022, 05/19/2021, 07/20/2020 Influenza Vaccine (#1) 2024 , 02/17/2020, 03/15/2019, Additional history exists Pneumococcal vaccine 65+ Completed 018, 11/02/2017, 10/15/2016 Insurance Rep MEDICARE PPO Rep MEDICARE PPO Advance Directives For more information, please contact: [phone] Documents on File Type Date Recorded Patient Professor Of Mechanical Engineering Expl anation ADVANCE DIRECTIVE 06/29/2022 8:45 AM Power of Cosmetics Presser-Medical * Full Code (Latest Code Status on File) Date Activated Date Inactivated Comments 09/15/2022 8:17 AM 09/21/2022 8:13 PM * Full Code Date Activated Date Inactivated Comments 06/26/2022 6:06 AM 06/28/2022 7:23 PM Care Teams Report Checker Relationship Specialty Start Date End Date Justin Simpson MD PCP - General Family Practice 06/26/22
--- OUTSIDE RECORDS SUMMARY | 2024-08-01 14:25 | XMS_ITS ---
Author Organization [facility] Care Team Providers Care Electromechanical Assembler Name Role Phone Hugo Martínez Unavailable Unavailable Aziza Morton Unavailable Unavailable Aislinn Hawkins Unavailable Unavailable Allergies and adverse reactions Code CodeSystem Substance Reaction Severity StartDate Concern Status 74035 RXNORM Tetracycline Unknown 07/15/2023 active Care Team Name Role Address Phone Organization Dates Hugo Martínez PCP [address] [place] [address], [facility], [place] (Office): : [facility] - [facility] 07/15/2023 - 08/28/2023 Aziza Morton Attending Physician [address] [place] [address], [facility], [place] (Office): [facility] 07/15/2023 - 08/28/2023 Aislinn Hawkins Attending Physician [address], [place], [address], [place] (Office): : [facility] [place] - [facility] 07/15/2023 - 08/28/2023 Medications Section Medication Name Status Code CodeSystem Dose Route Frequency Admin Type Sig Text Start Date End Date amLODIPine Besylate Oral Tablet 5 MG active 289712 RXNORM 1 tablet Oral one time a day Routine Give 1 tablet by mouth one time a day relate d to ESSENT IAL (PRIMA RY) HYPERT ENSION (I10) 2023 - Donepezil HCl Oral Tablet 5 MG active 660404 RXNORM 1 tablet Oral one time a day Routine Give 1 tablet by mouth one time a day relate d to UNSPEC IFIED KIM IA, UNSPEC IFIED SEVERI TY, WITH MOOD DISTUR BANCE (F03.9 3) 2023 - FLUoxetine HCl Oral Capsule 40 MG active 310618 RXNORM 1 capsul e Oral one time a day Routine Give 1 capsul e by mouth one time a day relate d to DEPRES CARMEN, UNSPEC IFIED (F32.A ) 2023 - Ventolin HFA Inhalation Aerosol Solution 108 (90 Base) MCG/ACT active 823841 RXNORM 2 puff Inhalat ion as needed PRN 2 puff inhale orally every 4 hours as needed for wheezi ng/samantha rtness of breath relate d to CHRONI C OBSTRU CTIVE PULMON ALEXIS DISEAS E WITH (ACUTE ) EXACER BATION (J44.1 ) 2023 - Breztri Aerosphere Inhalation Aerosol 160-9-4.8 MCG/ACT active 5351426 RXNORM 2 puff Inhalat ion two times a day Routine 2 puff inhale orally two times a day relate d to CHRONI C OBSTRU CTIVE PULMON ALEXIS DISEAS E WITH (ACUTE ) EXACER BATION (J44.1 ) rinse mouth with water and spit after each use 2023 - Cyclobenzapri ne HCl Oral Tablet 10 MG active 401659 RXNORM 1 tablet Oral as needed PRN Give 1 tablet by mouth every 8 hours as needed for muscle spasm relate d to PAIN IN UNSPEC IFIED JOINT (M25.5 0) 2023 - Rosuvastatin Calcium Oral Tablet 20 MG active 257322 RXNORM 1 tablet Oral one time a day Routine Give 1 tablet by mouth one time a day relate d to HYPERL IPIDEM IA, UNSPEC IFIED (E78.5 ) 2023 - SUMAtriptan Succinate Oral Tablet 50 MG active 448229 RXNORM 1 tablet Oral as needed PRN Give 1 tablet by mouth every 12 hours as needed for HEADAC HES relate d to MIGRAI NE, UNSPEC IFIED, NOT INTRAC TABLE, WITHOU T STATUS MIGRAI NOSUS (G43.9 09) only 2 tablet s per day 2023 - Acetaminophen Oral Tablet 325 MG active 402988 RXNORM 2 tablet Oral as needed PRN Give 2 tablet by mouth every 6 hours as needed for Pain 2023 - Mental Status Section Date Assessment Total Score Description 08/28/2023 CAM 0 No delirium ind icated 07/27/2023 BIMS 14 cognitively int act CAM 0 No delirium ind icated Problems Problem # Description Date of onset Resolved Date Code CodeSystem Concern Status 1 ANXIETY DISORDER, UNSPECIFIED 07/15/[address] active 2 CHRONIC OBSTRUCTIVE PULMONARY DISEASE WITH (ACUTE) EXACERBATION 07/15/[address] active 3 DEPRESSION, UNSPECIFIED 07/15/[address] active 4 ESSENTIAL (PRIMARY) HYPERTENSION 07/15/[address] active 5 HYPERLIPIDEMIA, UNSPECIFIED 07/15/[address] active 6 METABOLIC ENCEPHALOPATHY 07/15/[address] active 7 MIGRAINE, UNSPECIFIED, NOT INTRACTABLE, WITHOUT STATUS MIGRAINOSUS 07/15/[address] active 8 PAIN IN UNSPECIFIED JOINT 07/15/[address] active 9 PERSONAL HISTORY OF NICOTINE DEPENDENCE 07/15/[address] active 10 UNSPECIFIED DEMENTIA, UNSPECIFIED SEVERITY, WITH MOOD DISTURBANCE 07/15/[address] active Reason for Referral No Reasons for Referral Entered Social History Social History Observation Description Start Date End Date Code Code System Current Smoking Status Tobacco smoking consumption unknown 183803255 SNOMED CT Sex Assigned At Female 1945 35279-7 [facility] Vital Signs Code Code System Vitals Name Values and Units Timing Information 89195-9 [facility] Pain Level Value=0.0 08/28/2023 8867-4 [facility] Heart rate Value=67.0 Units=/min 00214-3 [facility] O2 % dC Oximetry Value=98.0 Units= % 08/28/2023 48253-1 [facility] Weight Xqbsy=688.5 Units=Lbs 07/2023 8310-5 [facility] Body Temperature Value=97.4 Units= F 07/17/2023 9279-1 [facility] Respiratory Rate Value=20.0 Units=/m in 07/17/2023 8462-4 [facility] Blood Pressure-Diastolic Value=78 Un its=mmHg 07/17/2023 8480-6 [facility] Blood Pressure-Systolic Borxg=247 Un its=mmHg 07/17/2023 8302-2 [facility] Height Value=64.0 Units=Inches 07/16/2023
--- OUTSIDE RECORDS SUMMARY | 2024-08-01 14:25 | XMS_ITS | Continuity of Care Document ---
Author Name Auto Generated, Auto Generated Organization [facility] Support Name Relationship Address Phone Sarah Negrete Emergency Contact 1 Unknown Unava ilable Chelsea Estevez Financial Responsible [employer] [address] [place] [address] Herb Chelsea Self [address] [place] [address] Sarah Negrete Grandchild Unknown Unavailable Brian Hernandez Emergency Contact 2 Unknown Unavail able Brian Hernandez Grandchild Unknown Unavailable Frederick, Rebeca [id number] Unknown Unavaila ble Frederick, Rebeca Emergency Contact 3 Unknown Unav ailable Ivana Gerardo Friend Unknown Unavailable Summary Purpose Consult/Referral Allergies, Adverse Reactions, Alerts Type Description/Agent Code Date Allergy Active Date Allergy Inactivated Date of Last Reaction Adverse Reactions Severity Status Comments Source of Information [facility]DB Medic ation Ingre dient tetracycline Active Augusta ent History Medications No Known Medications Conditions/Problems Problem/Diagnosis Awareness of Diagnosis Code (ICD-10) Onset Date (Start Date) Resolution Date (End Date) Status Source Comments CHRONIC OBSTRUCTIVE PULMONARY DISEASE, UNSPECIFIED J44.9 07/07/19 Active Marcela baumann MD [facility] DEPRESSION, UNSPECIFIED F32.A 07/07/19 Active Marcela baumann MD [facility] HYPERLIPIDEMIA, UNSPECIFIED E78.5 07/07/19 Active Marcela baumann MD [facility] ESSENTIAL (PRIMARY) HYPERTENSION I10 07/07/19 Active Marcela baumann MD [facility] PERSONAL HISTORY OF NICOTINE DEPENDENCE Z87.891 07/07/19 Active Marcela baumann MD [facility] UNSPECIFIED DEMENTIA, UNSPECIFIED SEVERITY, WITH MOOD DISTURBANCE F03.93 07/07/19 Active Marcela baumann MD [facility] UNSPECIFIED DEMENTIA, UNSPECIFIED SEVERITY, WITH ANXIETY F03.94 07/07/19 Active Marcela baumann MD [facility] ANXIETY DISORDER, UNSPECIFIED F41.9 07/07/19 Active Marcela baumann MD [facility] CHRONIC OBSTRUCTIVE PULMONARY DISEASE WITH (ACUTE) EXACERBATION J44.1 06/27/19 Active Marcela baumann MD [facility] METABOLIC ENCEPHALOPATHY G93.41 06/27/19 24 Active Marcela baumann MD [facility] URINARY TRACT INFECTION, SITE NOT SPECIFIED N39.0 06/27/19 24 07/11/2023 Resolved Marcela baumann MD [facility] Procedures No Known Procedures
--- OUTSIDE RECORDS SUMMARY | 2024-08-01 14:25 | XMS_ITS | Referral Summary ---
Author Organization [facility] Address [address] [place] [address] Care Team Providers Care Manager Community Outreach Name Role Phone Justin Simpson MD Primary Care Provider [phone] Allergies Active Allergy Reactions Criticality Noted Date [...] Hypertension Confusion Bilateral hip pain Encephalopathy, unspecified Social History Tobacco Use Types Packs/Day Years [...] often do you attend chur ch or episcopalian services? Never 09/15/2022 Do you belong to any clubs o r organizations such as methodist groups, unions, fraternal or athletic groups, or [...] place to sleep or slept in a nursing home (including now)? No 09/15/2022 Personal Safety Answer [...] 09/15/2022 9:20 AM CDT Plan of Treatment Not on file Insurance [employer] PPO [employer] PPO Advance Directives For more information, please contact: [phone] Documents on File Type Date Recorded Patient Mutual Fund Accountant Expl anation ADVANCE DIRECTIVE 06/29/2022 8:45 AM Power of Green Marketer-Medical * Full Code (Latest Code Status on File) Date Activated Date Inactivated Comments 09/15/2022 8:17 AM 09/21/2022 8:13 PM * Full Code Date Activated Date Inactivated Comments 06/26/2022 6:06 AM 06/28/2022 7:23 PM Care Teams Manager Community Outreach Relationship Specialty Start Date End Date Justin Simpson MD PCP - General Family Practice 06/26/22
== END 2024-08-01 13:00 | disposition home or self-care (01) ==
PROVIDERS: PCP Family Medicine; Visit Provider Internal Medicine Pulmonary Disease
DX: R91.1 Solitary pulmonary nodule (principal); J98.11 Atelectasis; J98.4 Other disorders of lung
CPT/HCPCS: 71250

== ENCOUNTER 2024-09-13 15:26 | Outpatient (CLI) | payer MEDICARE, SELFPAY ==
--- NOTE | ~2024-09-13 | XR_ITS ---
XR knee LT 3V 09/13/2024 15:45 Indication: Left knee pain after recent fall Procedure: 3 views left knee Comparison: No prior studies for comparison. Findings: There is mild tricompartment osteoarthritis. Chondrocalcinosis. No significant joint effusi on. No foreign bodies. No fracture or traumatic malalignment. Impression: 1: Mild tricompartment osteoarthritis. 2: Chondrocalcinosis. Reviewed, dictated and finalized at location [facility]. Impression: 1: Mild tricompartment osteoarthritis. 2: Chondrocalcinosis.
--- OUTSIDE RECORDS SUMMARY | 2024-09-13 15:43 | XMS_ITS ---
Author Name Auto Generated, Auto Generated Organization [facility] ices Address [address] [place] [address] Phone [phone] Care Team Providers Care Bmw Sales Consultant Name Role Phone Didier Figueroa Unavailable [phone] Rey Frazier Unavailable Functional Status Mental Status Allergies and Intolerances Medications Problems Reason for Referral Past Medical History
--- OUTSIDE RECORDS SUMMARY | 2024-09-13 15:43 | XMS_ITS ---
Author Name Auto Generated, Auto Generated Organization [facility] ices Address [address] [place] [address] Phone [phone] Care Team Providers Care Finish Painter Name Role Phone Didier Figueroa Unavailable [phone] Rey Frazier Unavailable Functional Status Mental Status Allergies and Intolerances Medications Problems Reason for Referral Past Medical History
== END 2024-09-13 15:27 | disposition home or self-care (01) ==
PROVIDERS: PCP Nurse Practitioner Adult Health; Visit Provider Nurse Practitioner Adult Health
DX: M17.12 Unilateral primary osteoarthritis, left knee (principal); M11.262 Other chondrocalcinosis, left knee
CPT/HCPCS: 73562